=== PATIENT | female | born 2000 | race Caucasian/White ===

== ENCOUNTER 2018-10-03 09:04 | Inpatient (IN) | END 2018-10-06 12:40 | disposition home or self-care (01) | DRG 872 ==

== ENCOUNTER 2018-12-07 11:52 | Emergency (ER) | payer MEDICAID ==
[~2018-12-07] VITALS: Wt 106.1 kg
[~2018-12-07 11:52] MED LIST: FERR1TAB14 PO; LEVO500T48 PO; METR500T PO
[2018-12-07 12:11] VITALS: BP 149/84; PULSE 78; RESP 18
[2018-12-07] MEDS ORDERED: ACET500C5 PO (15:05)
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
== END 2018-12-07 15:21 | disposition home or self-care (01) ==
LOC: FTE 11:52
DX: O26.891 Other specified pregnancy related conditions, first trimester (principal); R10.9 Unspecified abdominal pain; Z3A.01 Less than 8 weeks gestation of pregnancy
CPT/HCPCS: 76801; 76817; 81001; Z7502

== ENCOUNTER 2019-04-09 06:47 | Inpatient (IN) | payer MEDICAID ==
[~2019-04-09] VITALS: Ht 149.9 cm; Wt 47.0 kg
[~2019-04-09 06:47] MED LIST changes: +ACET500C5 PO
--- NOTE | 2019-04-09 07:44 | HP ---
Date/Time of Note Date/Time of Note DATE: 04/09/19 TIME: 07:42 OB - History Hx of Present Free Text/Dictation @22+wks GA with pyelonephritis : 1 Para: 0 Care: Good Care Ultrasounds: Normal mid trimester US Obstetrical Complications: None Medical Complications: None Past Family/Social History * Past Medical, Surgical, Family and Obstetric Histories reviewed from chart. OB Admission Exam Physical Exam Abdomen: WNL Membranes: Intact Heart Rate: 150's OB Assessment/Plan Reason for admission: observation Other Assessment: PMH Denies PSH Denies Plan: Expectant Management Other plan: IV hydration Antibiotics Ultrasound(KIdney and bladder) EFW and CXL MARÍA TINEO M.D. April 09, 2019 07:44
[2019-04-09 07:45] VITALS: Ht 149.9 cm; Wt 47.0 kg
--- NOTE | 2019-04-09 07:45 | TRIAGE ---
OB Triage Datetime Report Generated by CPN: 04/09/2019 07:45 Datetime: 04/09/2019 07:02 EGA: 23.6 Datetime: 04/09/2019 07:00 Assessment Type: Triage Maternal Assessment Level of Consciousness: Fully Conscious DTR's/Clonus: DTRs 2+; No Clonus Headache: Denies Blurred Vision: No Respiratory Effort: Unlabored; Regular Rhythm; Equal Expansion Breath Sounds, Left: Clear and Equal Breath Sounds, Right: Clear and Equal Nausea/Vomiting: Denies RUQ Epigastric Pain: Denies Lower Extremities Edema: None Degree: None Upper Extremities Edema: None Degree: None Facial Edema: None Fall Risk Assessment History of Falling: (0) No Secondary Diagnosis: (0) No Ambulatory Aid: (0) Bedrest/Nurse Assist IV Therapy: (0) No Gait: (0) Normal/Bedrest/Immobile Mental Status: (0) Oriented to Own Ability Fall Score: 0 Fall Risk Score Definition: No Risk: No action required Datetime: 04/09/2019 06:58 Vaginal Exam Membrane Status: Intact Datetime: 04/09/2019 06:37 Time of Arrival: 04/09/2019 06:37 Arrived By: Ambulatory Arrived From: Home Chief Complaint: PT CAME IN C/O BACK PAIN (RT FLANK PAIN) AND FEVER Movement: Present Contractions: Denies/Absent Rupture of Membranes: Denies Vaginal Bleeding: None Vaginal Discharge: Denies Recent Sexual Intercouse: Denies Abdominal Trauma: Not Applicable Additional Patient Complaints: NONE Time Provider Notified: 04/09/2019 07:40 Provider Notified: RIVKA Initial Plan: CX, BPP, LR, ANCEF, TREVOR, UA AND STEEL PLATE CAULKER
[2019-04-09] MEDS ORDERED: ACETAMINOPHEN 325 MG TAB PO PRN (08:30)
[2019-04-09] MEDS: FERROUS SULFATE (EC) 325 MG TAB PO SCH (09:53)
[2019-04-09] MEDS: LACTATED RINGER'S 1,000 ML IV SCH ×2 (09:53→17:26)
[2019-04-09] MEDS: PRENATAL VITAMIN PO SCH (09:54)
[2019-04-09] MEDS: DOCUSATE SODIUM 100 MG CAP PO SCH (09:54)
[2019-04-09] MEDS: CEFAZOLIN 2 GM/50 ML (PMX) 50 ML IVPB SCH ×2 (13:48→22:14)
[2019-04-10] MEDS: LACTATED RINGER'S 1,000 ML IV SCH ×3 (01:57→22:05)
[2019-04-10] MEDS: CEFAZOLIN 2 GM/50 ML (PMX) 50 ML IVPB SCH ×3 (05:28→22:06)
[2019-04-10] MEDS: FERROUS SULFATE (EC) 325 MG TAB PO SCH (09:00)
[2019-04-10] MEDS: PRENATAL VITAMIN PO SCH (09:00)
[2019-04-10] MEDS: DOCUSATE SODIUM 100 MG CAP PO SCH (09:00)
--- NOTE | 2019-04-10 17:14 | PN ---
Date/Time of Note Date/Time of Note DATE: 04/10/19 TIME: 17:01 OB Subjective Subjective Subjective Patient seen and examined. She states good movement. She denies nausea, vomiting, shortness of breath, chest pain, abdominal pain, headache, visual changes, vaginal bleeding or LOF. OB Objective Objective Objective General: Patient is pale. She is alert and oriented, NAD, appropriate mood and affect ABD: gravid, soft, non-tender. Back: No CVA tenderness (B/L) LE: Mild edema. No clubbing, cyanosis, edema, thigh or calf tenderness bilaterally FHT: 135 bpm , moderate variability with acceleration, no deceleration-category I Contractions: None OB Assessment/Plan Other plan: 19 year-old G1 with SIUP at 24 weeks admitted for leukocytosis and possible pyelonephritis 1. PNC: -FHR: Reassuring. No sign of metabolic acidosis- Category I -Contractions: None -OB ultrasound performed, cervical length 4.3. Footling breech presentation. EFW 534 g7.5 percentile, MVP 6.5 cm - vitamin daily, ferrous sulfate 325 mg 3 times daily 2. Leukocytosis with possible pyelonephritis and mild left hydronephrosis with 4.5 cm left renal cyst -Renal ultrasound performed: Mild right-sided hydronephrosis, large simple cyst in the left kidney -She is on Ancef 1 g every 8 hours since admission -White BC 22,000 on admission, today is 11.5 -Urinalysis with WBC of 2 and leukocyte Estrace 1+ on admission and today with WBC of 2 and leukocyte Estrace 2+ -Urine culture is pending 3. Severe anemia: -Hemoglobin 7.3, she denies any symptom. -Serum iron, TIBC, ferritin, hemoglobin electrophoresis ordered -Currently on ferrous sulfate 325 mg 3 times daily -If serum iron is low and TIBC is elevated consider IV iron Patient's primary OB has no privilege at the hospital, will follow by ARSH Brito April 10, 2019 17:14
[2019-04-11] MEDS: CEFAZOLIN 2 GM/50 ML (PMX) 50 ML IVPB SCH (06:17)
[2019-04-11] MEDS: LACTATED RINGER'S 1,000 ML IV SCH (06:22)
[2019-04-11] MEDS: PRENATAL VITAMIN PO SCH (10:38)
[2019-04-11] MEDS: DOCUSATE SODIUM 100 MG CAP PO SCH (10:39)
[2019-04-11] MEDS: FERROUS SULFATE (EC) 325 MG TAB PO SCH ×2 (10:39→10:40)
--- NOTE | 2019-04-11 13:40 | CONS ---
DATE OF ADMISSION: 04/09/2019 DATE OF CONSULTATION: 04/11/2019 HISTORY OF PRESENT ILLNESS: The patient is a 19-year-old Prima presented apparently with a f ever and left flank pain, presumed diagnosis of pyelonephritis was given. Initially white count was 22. She was placed on antibiotics and urine culture was sent. RECOMMENDATIONS: Please follow up on the urine culture. If there is any evidence of mixed antibioti cs or contamination, the cath UA should be done. Follow up with the culture and the sensitivity to a ssure confirmation of diagnosis of pyelonephritis or whether it is plain urinary tract infection. In terms of pyelonephritis, she should be continued on appropriate antibiotics until 48 hours after res olution of the fever and the CVA tenderness then continued appropriate p.o. antibiotics for 14 d ays. She also has severe anemia for which hematology is being consulted. Dictated By: YARELI LEON/DEWEY Conf#: [id number] DID#: [id number]
--- NOTE | 2019-04-11 16:59 | PN ---
Date/Time of Note Date/Time of Note DATE: 04/11/19 TIME: 16:56 OB Subjective Subjective Subjective Patient denies any chest pain or shortness of breath. Reports had episodes of lightheadedness and dizziness when she was at home. Denies any known history of anemia. records reviewed. Her hemoglobin at the beginning of care was within normal limits. Patient denies any GI symptoms. Denies any change in her bowel habits. Denies any black tarry stool. Denies any vaginal bleeding, leaking of fluid contractions or decreased movement now. Reports significant improvement of her symptoms OB Objective Objective Objective Abdomen soft, gravid, fundal height consider gestational age NST: Category 1 and appropriate for gestational age Extremities: No calf tenderness, no click no edema no cord palpable II & O 0707:00 IntakeIntake Total 3003 ml OutputOutput Total 1900 ml BalanceBalance 1103 ml IntakeIntake Oral 440 ml IVIV Total 2563 ml OutputOutput Urine Total 1900 ml ## Voids 4 Laboratory Tests Test 04/11/19 06:22 Lab Scanned Report REFERENCE LAB OB Assessment/Plan Other Assessment: IUP at 24 weeks and 1 day Left flank pain, leukocytosis, admitted with diagnosis of possible py elonephritis On Ancef, leukocytosis improved symptoms significantly resolved Severe anemia, had symptoms in the past, unclear etiology I advised the patient To stay in the hospital for hematology consultation, for further evaluation of the cause of anemia. Iron deficiency, Currently no evidence of labor, PPROM Patient declined to stay in the hospital for further evaluation and for hematology consultation prior to discharge home I discussed with the patient risk of complications of severe anemia, she might be a candidate for IV iron infusion versus blood transfusion and further work-up for evaluation for the cause of anemia. Patient declined and desired to sign AMA. All explanation and discussion and counseling was done in the presence of RN as well as patient's partner. Patient verbalized understanding all above risks including risk of fall, trauma to the baby during , and the risks of versus demise, risk of abruption in case of fall and trauma to the abdomen, in the context of severe anemia, patient verbalized understanding all above risks and desires to leave the hospital AMA She was advised to be seen in her own clinic within 1 to 2 days after leaving the hospital. Strict labor precaution discussed. VALERI LEMON MD April 11, 2019 16:59
== END 2019-04-11 12:55 | disposition left against medical advice (07) | DRG 833 ==
LOC: L-D 06:47 → OBT 06:47 → L-D 07:40 → PP1 04-10 06:09
PROVIDERS: ADMIT Obstetrics & Gynecology; ATTEND Obstetrics & Gynecology
DX: O23.02 Infections of kidney in pregnancy, second trimester (principal); O99.012 Anemia complicating pregnancy, second trimester; Z3A.22 22 weeks gestation of pregnancy
CPT/HCPCS: 76705; 76775; 76815; 76817; 81001; 82728; 83540; 85025; 87086; G0463; J0690; J7120